=== PATIENT | female | born 1990 | race American Indian/Alaskan Native ===

== ENCOUNTER 2016-09-09 19:04 | Emergency (ER) | payer SELFPAY ==
[2016-09-09 19:35] VITALS: BP 135/91
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
== END 2016-09-09 22:40 | disposition home or self-care (01) ==
LOC: ED 19:04
DX: R21 Rash and other nonspecific skin eruption (principal)
CPT/HCPCS: 99282

== ENCOUNTER 2017-10-14 19:14 | Emergency (ER) | payer SELFPAY ==
[2017-10-14 20:51] VITALS: BP 137/93
[2017-10-14] MEDS ORDERED: TYLENOL ONE (21:00)
[2017-10-14] MEDS ORDERED: TYLENOL PO ONE (21:06)
--- NOTE | 2017-10-14 22:50 | XRay Report ---
FINAL REPORT PROCEDURE: XR CHEST ROUTINE 2V TECHNIQUE: PA and lateral chest radiographs were obtained. CPT 31402 HISTORY: cough w/thick green sputum COMPARISON: No prior studies are available for comparison. FINDINGS: Heart: Normal. Mediastinum/Vessels: Normal. Lungs/Pleural space: Normal. Bony thorax: No acute osseous abnormality. Other: IMPRESSION: Normal examination.
== END 2017-10-14 23:40 | disposition left against medical advice (07) ==
LOC: ED 19:14
DX: R09.89 Other specified symptoms and signs involving the circulatory and respiratory systems (principal); Z53.21 Procedure and treatment not carried out due to patient leaving prior to being seen by health care provider
CPT/HCPCS: 71046

== ENCOUNTER 2017-10-26 02:26 | Emergency (ER) | payer SELFPAY ==
[2017-10-26 02:46] VITALS: BP 137/90
[2017-10-26] MEDS ORDERED: NACL 0.9% 500 ML IR ONE (02:55)
[2017-10-26] MEDS ORDERED: XYLOCAINE 2% INFILTRATI ONE ×2 (02:55)
[2017-10-26] MEDS ORDERED: NACL 0.9% IR ONE (02:55)
[2017-10-26] MEDS ORDERED: PERCOCET 5/325 PO ONE (03:18)
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
[2017-10-26] MEDS ORDERED: AUGMENTIN 875 MG PO ONE (05:34)
[2017-10-26] MEDS ORDERED: BOOSTRIX IM ONE (05:34)
== END 2017-10-26 05:55 | disposition home or self-care (01) ==
LOC: ED 02:26
DX: S21.112A Laceration without foreign body of left front wall of thorax without penetration into thoracic cavity, initial encounter (principal); S41.112A Laceration without foreign body of left upper arm, initial encounter; S01.112A Laceration without foreign body of left eyelid and periocular area, initial encounter; W50.3XXA Accidental bite by another person, initial encounter; Y93.89 Activity, other specified; Y92.89 Other specified places as the place of occurrence of the external cause; Y99.8 Other external cause status
CPT/HCPCS: 71046; 90471; 90715

== ENCOUNTER 2020-11-03 04:45 | Outpatient (CLI) | payer OTHER ==
[2020-11-03 07:35] VITALS: BP 108/68
[2020-11-03 07:37] LABS: Bilirubin,Urine NEG (Negative); Blood,Urine NEG (Negative); Color,Urine Yellow (Yellow); Mucus,Urine FEW /HPF; Protein,Urine <15 mg/dL mg/dL (Negative); Urobilinogen,Urine < 2.0 mg/dL (<2.0)
[2020-11-03] MEDS ORDERED: oxyCODONE /ACETAMINOPHEN 5-325MG TAB PO ONE (07:40)
== END 2020-11-03 08:11 | disposition home or self-care (01) ==
LOC: EDSTATUS 04:59 → TRG 05:05 → APU 05:07 → TRG 08:11
PROVIDERS: ATTEND Obstetrics & Gynecology
DX: Z34.93 Encounter for supervision of normal pregnancy, unspecified, third trimester (principal); Z3A.30 30 weeks gestation of pregnancy
CPT/HCPCS: 81001; 87086